=== PATIENT | female | born 1990 | race Two or more races ===

== ENCOUNTER 2019-08-23 22:27 | Emergency (ER) | payer MEDICAID ==
--- NOTE | 2019-08-24 00:31 | ER Document Report ---
ED Medical Screen (RME) - General Chief Complaint: Vaginal Bleeding Stated Complaint: VAGINAL BLEEDING Time Seen by Provider: 08/24/19 00:22 - HPI Notes: 08/24/19 00:28 29-year-old female to the emergency department with complaints of lower abdominal cramping and vaginal bleeding that began yesterday. She is approximately 10 weeks and has had a confirmed IUP on ultrasound [facility]. 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 She states that every time she gets to the bathroom she sees a large amount of blood. It does feel similar to prior miscarriages. Patient and her are predominantly Indonesian speaking but can speak some Kinyarwanda. They state that she was seen in [place] and had a surgery on her uterus. They state that the physician told him that her uterus was heart-shaped and they made it more circular. When asked if she had a bicornate uterus they seem to think that that may be the cause but they were not sure. They state that last week she had a fever and they were seen at the [facility] and told to take Tylenol. Patient just feeling better after the fever in the past 2 days and has not had a fever since. She does admit to some urinary burning. Denies any other symptoms. I performed a brief medical screening exam on the patient determined that the patient needs further evaluation and management by main side provider. I have placed initial orders to help expedite care. Physical Exam - Vital signs Vitals: Temp Pulse Resp BP Pulse Ox 98.9 F 79 20 140/89 H 100 08/23/19 22:38 08/23/19 22:38 08/23/19 22:38 08/23/19 22:38 08/23/19 22:38 Course - Vital Signs Vital signs: Temp Pulse Resp BP Pulse Ox 98.9 F 79 20 140/89 H 100 08/23/19 22:38 08/23/19 22:38 08/23/19 22:38 08/23/19 22:38 08/23/19 22:38
[2019-08-24 01:26] LABS: ABSOLUTE EOSINOPHILS # (AUTO) 0.2 10^3/uL (0.0-0.6); ABSOLUTE LYMPHOCYTES (AUTO) 2.8 10^3/uL (0.5-4.7); ABSOLUTE MONOCYTES (AUTO) 0.4 10^3/uL (0.1-1.4); ABSOLUTE NEUT (AUTO) 4.3 10^3/uL (1.7-8.2); BASOPHILS % (AUTO) 0.5 % (0-2); EOSINOPHILS % (AUTO) 2.5 % (0-6); HEMATOCRIT 35.5 % (36.0-47.0); HEMOGLOBIN 11.9 g/dL (12.0-15.5); LYMPHOCYTES % (AUTO) 35.7 % (13-45); MEAN CORPUSCULAR HEMOGLOBIN 27.1 pg (27.0-33.4); MEAN CORPUSCULAR HGB CONC 33.6 g/dL (32.0-36.0); MEAN CORPUSCULAR VOLUME 81 fl (80-97); MONOCYTES % (AUTO) 5.8 % (3-13); PLATELET COUNT 317 10^3/uL (150-450); RED CELL DISTRIBUTION WIDTH 16.9 % (11.5-14.0); SEGMENTED NEUTROPHILS % (AUTO) 55.5 % (42-78); TOTAL CELLS COUNTED % (AUTO) 100 %; WHITE BLOOD COUNT 7.8 10^3/uL (4.0-10.5)
[2019-08-24 01:35] LABS: APPEARANCE,URINE CLEAR; BILIRUBIN,URINE NEGATIVE (NEGATIVE); CALCIUM OXALATE CRYSTALS,URINE MANY /HPF; COLOR,URINE YELLOW; GLUCOSE, URINE NEGATIVE (NEGATIVE); KETONES,URINE NEGATIVE (NEGATIVE); LEUKOCYTE ESTERASE,URINE NEGATIVE (NEGATIVE); NITRITE,URINE NEGATIVE (NEGATIVE); PROTEIN,URINE NEGATIVE (NEGATIVE); URINE SPECIFIC GRAVITY 1.023; UROBILINOGEN,URINE NEGATIVE mg/dL (<2.0)
[2019-08-24 01:43] LABS: ANION GAP 9 (5-19); BLOOD UREA NITROGEN 12 mg/dL (7-20); CALCIUM 9.3 mg/dL (8.4-10.2); CARBON DIOXIDE 24 mmol/L (22-30); CHLORIDE 104 mmol/L (98-107); GLUCOSE 82 mg/dL (75-110); POTASSIUM 4.2 mmol/L (3.6-5.0)
--- NOTE | 2019-08-24 06:15 | RADIOLOGY REPORT (SQ) ---
EXAM: US First Trimester , Transabdominal EXAM DATE/TIME: 08/24/2019 5:05 AM CLINICAL HISTORY: The patient is 29 years old and is Female; vaginal bleed TECHNIQUE: Real-time transabdominal obstetrical ultrasound of the maternal pelvis and a first trimester with image documentation. COMPARISON: No relevant prior studies available. FINDINGS: GESTATION: There is a single intrauterine gestational sac containing a yolk sac and pole. Estimated gestational age based on crown-rump length is 10 weeks 6 days. heart rate is 168 bpm. PLACENTA/AMNIOTIC FLUID: There is a small hypoechoic area posterior to the gestational sac which may represent a tiny subchorionic hemorrhage. This measures 2.1 x 0.3 x 1.9 cm. UTERUS/CERVIX: The uterus measures 9.0 x 6.8 cm. No obvious myometrial mass. The cervix measures 2.5 cm in length and is closed. OVARIES: The right ovary measures 4.4 x 1.2 x 2.1 cm. The left ovary measures 3.4 x 1.5 x 2.8 cm. The ovaries are normal in appearance. Blood flow is demonstrated in bilateral ovaries. No obvious adnexal mass. FREE FLUID: No free fluid. IMPRESSION: 1. Single viable intrauterine with estimated gestational age of 10 weeks 6 days. 2. Small subchorionic hemorrhage not excluded.
--- NOTE | 2019-08-24 06:37 | ER Document Report ---
Entered by YOSEF NEWBERRY SCRIBE 08/24/19 0445 Acting as scribe for:FAVIO TOLENTINO MD ED GI/ - General Chief Complaint: Vaginal Bleeding Stated Complaint: VAGINAL BLEEDING Time Seen by Provider: 08/24/19 00:22 Mode of Arrival: Ambulatory Information source: Patient, Relative - Significant other Notes: This 29 year old female patient who is A5, approximately x10 weeks presents to the ED today accompanied by her significant other with complaints of vaginal bleeding that started x1 day ago. Significant other states that they had x2 ultrasounds done in the past at [facility] that were fine. Patient also reports sudden onset back pain that started x2 days ago and a headache. Patient denies urinary frequency or burning. Patient denies diabetes, hypertension, or cardiac problems. Patient and significant other are English speaking, but can sp eak some Sierra Leonean. TRAVEL OUTSIDE OF THE [place] IN LAST 30 DAYS: No - HPI heart tones (bpm): 175 - Related Data Allergies/Adverse Reactions: No Known Allergies Allergy (Unverified 08/24/19 00:30) Past Medical History - General Information source: Patient, Relative - Significant other Last Menstrual Period: 06/14/19 - Social History Smoking Status: Never Smoker Cigarette use (# per day): No Chew tobacco use (# tins/day): No Smoking Education Provided: No Frequency of alcohol use: None Drug Abuse: None Lives with: Spouse/Significant other Family History: Reviewed & Not Pertinent Patient has suicidal ideation: No Patient has homicidal ideation: No Past Surgical History: Reports: Hx Abdominal Surgery - laparoscopy Review of Systems - Review of Systems Constitutional: No symptoms reported EENT: No symptoms reported Cardiovascular: No symptoms reported Respiratory: No symptoms reported Gastrointestinal: No symptoms reported Genitourinary: See HPI. denies: Burning, Frequency Female Genitourinary: See HPI, - 10 weeks, Vaginal bleeding Musculoskeletal: See HPI, Back pain Skin: No symptoms reported Hematologic/Lymphatic: No symptoms reported Neurological/Psychological: See HPI, Headaches -: Yes All other systems reviewed and negative Physical Exam - Vital signs Vitals: Temp Pulse Resp BP Pulse Ox 98.9 F 79 20 140/89 H 100 08/23/19 22:38 08/23/19 22:38 08/23/19 22:38 08/23/19 22:38 08/23/19 22:38 - General General appearance: Alert In distress: None - HEENT Head: Normocephalic, Atraumatic Eyes: Normal Pupils: PERRL - Respiratory Respiratory status: No respiratory distress Chest status: Nontender Breath sounds: Normal Chest palpation: Normal - Cardiovascular Rhythm: Regular Heart sounds: Normal auscultation Murmur: No - Abdominal Inspection: Normal Distension: No distension Bowel sounds: Normal Tenderness: Nontender - Abdomen soft Organomegaly: No organomegaly - Back Back: Normal, Nontender - Extremities General upper extremity: Normal inspection General lower extremity: Normal inspection - Neurological Neuro grossly intact: Yes - Psychological Associated symptoms: Normal affect, Normal mood - Skin Skin Temperature: Warm Skin Moisture: Dry Skin Color: Normal Course - Vital Signs Vital signs: Temp Pulse Resp BP Pulse Ox 98.3 F 71 20 90/60 L 98 08/24/19 05:47 08/24/19 05:47 08/24/19 05:47 08/24/19 05:47 08/24/19 05:47 - Laboratory Result Diagrams: 08/24/19 01:05 08/24/19 01:05 Laboratory results interpreted by me: 08/24/19 08/24/19 08/24/19 01:05 01:05 01:05 Hgb 11.9 L Hct 35.5 L RDW 16.9 H Sodium 136.8 L Creatinine 0.44 L Beta HCG, Quant 22844.00 H Urine Blood SMALL H 08/24/19 06:35 Laboratories are within normal limits is a small amount of blood in the urine otherwise no acute process. Patient is A positive on Rh type. - Diagnostic Test Radiology reviewed: Image reviewed, Reports reviewed Radiology results interpreted by me: 08/24/19 06:34 Ultrasound pelvis first first trimester shows a intrauterine fetus with a heart rate of 1 68; 10 weeks 6 days by size's small subchorionic hemorrhage noted. Otherwise viable intrauterine gestational fetus at this time. Discharge - Discharge Clinical Impression: Threatened miscarriage in early Condition: Stable Disposition: HOME, SELF-CARE Instructions: Threatened Miscarriage ([facility]) I personally performed the services described in the documentation, reviewed and edited the documentation which was dictated to the scribe in my presence, and it accurately records my words and actions.
[2019-08-24 06:51] VITALS: BP 99/58
== END 2019-08-24 06:48 | disposition home or self-care (01) ==
LOC: ER 22:27
DX: O20.0 Threatened abortion (principal); O99.89 Other specified diseases and conditions complicating pregnancy, childbirth and the puerperium; M54.9 Dorsalgia, unspecified; R51 Headache; Z3A.10 10 weeks gestation of pregnancy
CPT/HCPCS: 36415; 76801; 80048; 81001; 84702; 85025; 86900; 86901

== ENCOUNTER 2019-09-06 21:26 | Emergency (ER) | payer MEDICAID ==
[2019-09-06] MEDS ORDERED: ONDANSETRON HCL INJ/PF 4 MG/2 ML SDV IV ONE (21:47)
[2019-09-06] MEDS ORDERED: MORPHINE SULFATE 10 MG/ML INJ IV ONE ×2 (21:47→23:01)
[2019-09-06] MEDS ORDERED: NORMAL SALINE 1000 ML 1,000 ML IV ONE (21:56)
--- NOTE | 2019-09-07 00:09 | ER Document Report ---
ED GI/ - General Chief Complaint: Vag Bleeding, +preg <12wks Stated Complaint: VAGINAL BLEEDING/12 WEEKS Time Seen by Provider: 09/06/19 21:39 Primary Care Provider: ANDREW VÁZQUEZ MD [Primary Care Provider] - Follow up as needed Mode of Arrival: Ambulatory Information source: Patient Notes: Patient is a 29-year-old female presenting to the emergency department with vaginal bleeding in the setting of . Patient is approximately 12 weeks . She is a AB4. She arrives via EMS, EMS reports that they believe the fetus is at the vaginal opening. Patient's primary language is Uzbek. She is accompanied by her . They are requesting a female provider. TRAVEL OUTSIDE OF THE [place] IN LAST 30 DAYS: No - Related Data Allergies/Adverse Reactions: No Known Allergies Allergy (Verified 09/07/19 00:29) Past Medical History - General Information source: Patient - Social History Smoking Status: Never Smoker Frequency of alcohol use: None Drug Abuse: None Lives with: Spouse/Significant other Family History: Reviewed & Not Pertinent Patient has suicidal ideation: No Patient has homicidal ideation: No - Medical History Medical History: Negative Past Surgical History: Reports: Hx Abdominal Surgery - laparoscopy - Immunizations Immunizations up to date: Yes Review of Systems - Review of Systems Gastrointestinal: Abdominal pain - Low abdominal cramping Female Genitourinary: Vaginal bleeding Physical Exam - Vital signs Vitals: Pulse Ox 98 09/06/19 21:26 - Notes Notes: PHYSICAL EXAMINATION: GENERAL: Well-appearing, well-nourished and in no acute distress. HEAD: Atraumatic, normocephalic. EYES: Pupils equal round and reactive to light, extraocular movements intact, conjunctiva are normal. ENT: Nares patent, oropharynx clear without exudates. Moist mucous membranes. NECK: Normal range of motion, supple without lymphadenopathy LUNGS: Breath sounds clear to auscultation bilaterally and equal. No wheezes rales or rhonchi. HEART: Regular rate and rhythm without murmurs ABDOMEN: Soft, nontender, nondistended abdomen. No guarding, no rebound. No masses appreciated. Female : Normal external genetalia, vaginal bleeding noted, cervix open, large cots and placenta noted at vaginal opening. Musculoskeletal: Normal range of motion, no pitting or edema. No cyanosis. NEUROLOGICAL: Cranial nerves grossly intact. Normal speech, normal gait. Normal sensory, motor exams PSYCH: Normal mood, normal affect. SKIN: Warm, Dry, normal turgor, no rashes or lesions noted. Course - Re-evaluation Re-evalutation: Labs as recorded. Patient with complete , approx 12 week fetus noted in [facility] arrival from [facility]. Multiple blood clots and placental tissue extracted from vagina. Patient has been monitored for several hours and bleeding has slowed significanty. Patient will be discharged home and will follow up with [facility]. - Vital Signs Vital signs: Temp Pulse Resp BP Pulse Ox 98 F 83 21 H 112/75 98 09/07/19 01:24 09/07/19 01:24 09/07/19 01:24 09/07/19 01:24 09/07/19 01:24 - Laboratory Result Diagrams: 09/06/19 23:59 09/06/19 23:59 Laboratory results interpreted by me: 09/06/19 09/06/19 23:59 23:59 WBC 11.8 H RBC 3.28 L Hgb 9.4 L Hct 26.7 L RDW 17.2 H Absolute Neuts (auto) 8.9 H Sodium 135.4 L Chloride 108 H Carbon Dioxide 21 L Creatinine 0.44 L Glucose 132 H Total Protein 5.9 L Albumin 3.2 L Discharge - Discharge Clinical Impression: Miscarriage Condition: Stable Disposition: HOME, SELF-CARE Additional Instructions: Miscarriage You have had a miscarriage (medically called a "spontaneous "). The miscarriage occurred because the fetus did not develop normally. There is nothing you did to cause it, and nothing you could have done to prevent it. About one in four ends in miscarriage. You should rest in bed for two or three days. As there is some risk of infection of the uterus, you should not have intercourse for one week (or until okayed by your physician). You might not have a period for six to eight weeks. You should not become again for at least three months -- the uterus requires time to get back to normal. Call the doctor or return for re-examination if there is heavy or persistent vaginal bleeding, fever, foul discharge, continued cramping pains, or abdominal pain. Prescriptions: Ibuprofen [Motrin 800 mg Tablet] 800 mg PO Q8H PRN #30 tab PRN Reason: Hydrocodone/Acetaminophen [[place] 5-325 mg Tablet] 1 tab PO Q4H PRN #12 tablet PRN Reason: Referrals: ANDREW VÁZQUEZ MD [Primary Care Provider] - Follow up as needed
[2019-09-07] MEDS ORDERED: HYDROCODONE/ACETAMINOPHEN 5-325 MG (6 TAB/ER DISP) PO PRN (00:15)
[2019-09-07] MEDS ORDERED: ONDANSETRON ODT 4 MG TAB (6 TAB/ER DISP) PO PRN (00:15)
[2019-09-07 00:28] LABS: ABSOLUTE BASOPHILS # (AUTO) 0.1 10^3/uL (0.0-0.2); ABSOLUTE EOSINOPHILS # (AUTO) 0.2 10^3/uL (0.0-0.6); ABSOLUTE LYMPHOCYTES (AUTO) 2.1 10^3/uL (0.5-4.7); ABSOLUTE MONOCYTES (AUTO) 0.6 10^3/uL (0.1-1.4); ABSOLUTE NEUT (AUTO) 8.9 10^3/uL (1.7-8.2); BASOPHILS % (AUTO) 0.5 % (0-2); EOSINOPHILS % (AUTO) 1.4 % (0-6); HEMATOCRIT 26.7 % (36.0-47.0); HEMOGLOBIN 9.4 g/dL (12.0-15.5); LYMPHOCYTES % (AUTO) 18.2 % (13-45); MEAN CORPUSCULAR HEMOGLOBIN 28.6 pg (27.0-33.4); MEAN CORPUSCULAR HGB CONC 35.2 g/dL (32.0-36.0); MEAN CORPUSCULAR VOLUME 81 fl (80-97); PLATELET COUNT 306 10^3/uL (150-450); RED BLOOD COUNT 3.28 10^6/uL (3.72-5.28); RED CELL DISTRIBUTION WIDTH 17.2 % (11.5-14.0); SEGMENTED NEUTROPHILS % (AUTO) 74.9 % (42-78); TOTAL CELLS COUNTED % (AUTO) 100 %; WHITE BLOOD COUNT 11.8 10^3/uL (4.0-10.5)
[2019-09-07 00:43] LABS: ALBUMIN 3.2 g/dL (3.5-5.0); ALKALINE PHOSPHATASE 57 U/L (38-126); ANION GAP 6 (5-19); ASPARTATE AMINO TRANSFERASE 15 U/L (14-36); BILIRUBIN,TOTAL 0.2 mg/dL (0.2-1.3); BLOOD UREA NITROGEN 8 mg/dL (7-20); CALCIUM 8.5 mg/dL (8.4-10.2); CARBON DIOXIDE 21 mmol/L (22-30); CHLORIDE 108 mmol/L (98-107); GLUCOSE 132 mg/dL (75-110); POTASSIUM 3.9 mmol/L (3.6-5.0); TOTAL PROTEIN 5.9 g/dL (6.3-8.2)
[2019-09-07 01:25] VITALS: BP 112/75
== END 2019-09-07 01:25 | disposition home or self-care (01) ==
LOC: ER 21:26
DX: O03.9 Complete or unspecified spontaneous abortion without complication (principal); Z3A.12 12 weeks gestation of pregnancy
CPT/HCPCS: 96376; 99284; 96361; 96374; 96375; 36415; 85025; 80053; 88305 ×2; J2270 ×2; J2405; J7030

== ENCOUNTER 2019-09-15 11:56 | Day surgery (SDC) | payer MEDICAID ==
[~2019-09-15 11:56] MED LIST: FENTANYL CITRATE INJ/PF 100 MCG/2 ML AMPUL ONE; MIDAZOLAM 2 MG/2 ML INJ ONE; ONDANSETRON HCL INJ/PF 4 MG/2 ML SDV ONE; PROPOFOL INJ 200 MG/20 ML VIAL IV ONE
[2019-09-15] MEDS ORDERED: FENTANYL CITRATE INJ/PF 100 MCG/2 ML AMPUL IV PRN ×3 (12:18)
[2019-09-15] MEDS ORDERED: PROMETHAZINE HCL INJ 25 MG/1 ML VIAL IV PRN ×2 (12:18)
[2019-09-15] MEDS ORDERED: MEPERIDINE HCL/PF INJ 25 MG/1 ML DISP.SYRIN IV PRN (12:18)
[2019-09-15] MEDS ORDERED: DIPHENHYDRAMINE HCL 50 MG/ML VIAL IV PRN (12:18)
[2019-09-15 13:21] LABS: AMORPHOUS SEDIMENT,URINE 2+ /HPF; APPEARANCE,URINE TURBID; BILIRUBIN,URINE NEGATIVE (NEGATIVE); COLOR,URINE YELLOW; GLUCOSE, URINE NEGATIVE (NEGATIVE); KETONES,URINE NEGATIVE (NEGATIVE); LEUKOCYTE ESTERASE,URINE NEGATIVE (NEGATIVE); NITRITE,URINE NEGATIVE (NEGATIVE); PROTEIN,URINE NEGATIVE (NEGATIVE); URINE SPECIFIC GRAVITY 1.024; UROBILINOGEN,URINE NEGATIVE mg/dL (<2.0)
[2019-09-15] MEDS ORDERED: OXYCODONE-ACETAMINOPHEN 5-325 MG TABLET PO PRN ×2 (13:32)
[2019-09-15] MEDS ORDERED: RINGERS SOLUTION,LACTATED 1,000 ML IV PRN (13:32)
[2019-09-15] MEDS ORDERED: IBUPROFEN 800 MG TABLET PO PRN (13:32)
[2019-09-15] MEDS ORDERED: KETOROLAC TROMETHAMINE INJ/PF 30 MG/1 ML SDV IV PRN (13:32)
--- NOTE | 2019-09-15 13:38 | Operative Report ---
Operative Report DATE OF SURGERY: 09/15/19 PREOPERATIVE DIAGNOSIS: retained products of conception POSTOPERATIVE DIAGNOSIS: Same OPERATION: suction D&C SURGEON: ADAM JURADO ANESTHESIA: GA TISSUE REMOVED OR ALTERED: Products of conception COMPLICATIONS: None ESTIMATED BLOOD LOSS: 50 cc INTRAOPERATIVE FINDINGS: Uterus sounded to 10 cm, moderate amount of POC obtained PROCEDURE: Patient was taken to the operating room prepared and draped in a normal sterile fashion in a dorsal lithotomy position. An in and out cath was performed of approximately 100 cc of clear urine. Sterile speculum was placed into the vagina and the cervix was prepped with Betadine and grasped on the anterior lip with a single-tooth tenaculum. The uterus was sounded to the above findings. The cervix was dilated to accommodate an 8 mm curved curette. The curved curette was passed x3 under suction and a small amount of decidual type tissue was removed. Curettage was performed using Kevorkian curette. Good great was noted 360 degrees around. More pass with the suction curette no further tissue. The procedure was then concluded Metzenbaums were removed sponge lap and needle counts were correct x2. She was taken to recovery in stable condition
[2019-09-15] MEDS ORDERED: KETOROLAC TROMETHAMINE INJ/PF 30 MG/1 ML SDV ONE (14:06)
[2019-09-15] MEDS ORDERED: KETOROLAC TROMETHAMINE INJ/PF 30 MG/1 ML SDV IV ONE (14:30)
[2019-09-15 15:30] VITALS: BP 104/71
== END 2019-09-15 15:30 | disposition home or self-care (01) ==
LOC: OROUT 11:56
PROVIDERS: ATTEND Obstetrics & Gynecology
DX: O02.1 Missed abortion (principal)
CPT/HCPCS: 81025; 81001; 88305 ×2; 01965; 59820; J2250; J3010; J1885; J2405; J2704; 1965

== ENCOUNTER → 2020-03-30 | Outpatient (CLI) | payer BC ==
--- NOTE | 2020-03-30 15:17 | RADIOLOGY REPORT (SQ) ---
EXAM DESCRIPTION: NM GASTRIC EMPTYING STUDY IMAGES COMPLETED DATE/TIME: 03/30/2020 12:10 pm REASON FOR STUDY: EPIGASTRIC PAIN R10.13 EPIGASTRIC PAIN COMPARISON: None. RADIONUCLIDE AND DOSE: 2.06 millicuries Tc-99m Sulfur Colloid. A wide variety of solid foods have been used. The route of agent administration: Oral. TECHNIQUE: 1 minute serial static imaging performed at time of meal, 1 hour, 2 hours, 3 hours, and 4 hours as needed. Once stomach reaches 90% emptying, the test is complete. Image intensity values pl otted with respect to time with linear regression algorithm. LIMITATIONS: None. FINDINGS: Patient was observed for 4 hours. Immediate post meal serves as baseline. Gastric emptying at 30 minutes was 6%. Gastric emptying at 60 minutes was 14% Gastric emptying at 90 minutes was 23%. Gastric emptying at 120 minutes was 31%. Gastric emptying at 240 minutes was 57%. Normal values: 60 minutes: 30-90% retained. If less than 30%, abnormally rapid emptying. If greater than 90%, delaye d gastric emptying. 120 minutes: <60% retained. If greater than 60%, delayed gastric emptying. 240 minutes: <10% retained. If greater than 10%, delayed gastric emptying. IMPRESSION: Decreased gastric emptying. TECHNICAL DOCUMENTATION: JOB ID: [id number] 2010 [employer]- All Rights Reserved Reading location - IP/workstation name: [email or web address]
== END ==
LOC: RAD 07:23
PROVIDERS: ATTEND Internal Medicine Gastroenterology
DX: R10.13 Epigastric pain (principal)
CPT/HCPCS: 78264; A9541